=== PATIENT | male | born 1945 | race Caucasian/White ===

== ENCOUNTER 2018-12-24 07:25 | Day surgery (SDC) | payer OTHER, MEDICARE ==
[2018-12-21 12:46] VITALS: BMI 32.5
[2018-12-24] MEDS ORDERED: LIDOCAINE HCL/PF 2% SDV 5ML VIAL ONE (08:14)
[2018-12-24] MEDS ORDERED: PROPOFOL 20 ML ONE ×4 (08:14)
[2018-12-24 09:13] VITALS: PULSE 58; TEMP 97.9
[2018-12-24 09:37] VITALS: BP 127/60
--- NOTE | 2018-12-25 16:39 | PATH ---
Surgical Pathology Report Patient Name: KERRI PAYNE [facility]. Rec. #: [id number] /Age/Gender: 1945 (Age: 73) / M Account: [id number] Location: [facility] Taken: 12/24/2018 Received: 12/24/2018 Reported: 12/25/2018 Physicians: Chacho Serna M.D. Specimen(s) Received A: BX POLYP DISTAL TRANSVERSE COLON B: HOT SNARE POLYPECTOMY PROXIMAL RIGHT COLON Clinical History History of polyps Postoperative diagnosis: Colon polyps, diverticulosis Final Diagnosis A. DISTAL TRANSVERSE COLON, POLYP, BIOPSY: HYPERPLASTIC POLYP. B. PROXIMAL RIGHT COLON, POLYP, POLYPECTOMY: TUBULAR ADENOMA. Electronically Signed Chela Chaudhari M.D. Gross Description A. Received in formalin, labeled "biopsy polyp distal transverse colon" are 2 canseco, irregular portions of soft tissue averaging 0.2 cm. in greatest dimension. The specimens are submitted in toto in one cassette. B. Received in formalin, labeled "polypectomy proximal right colon" is a canseco, polypoid portion of soft tissue measuring 0.6 cm. in greatest dimension. The specimen is submitted in toto in one cassette. 12/24/2018 saudi12/24/2018
== END 2018-12-24 10:03 | disposition home or self-care (01) ==
LOC: FASU-ENDO 07:25
PROVIDERS: ATTEND Internal Medicine Gastroenterology
PROC: 0DBL8ZX Excision of Transverse Colon, Via Natural or Artificial Opening Endoscopic, Diagnostic (ICD-10-PCS; 2018-12-24)
PROC: 0DBK8ZX Excision of Ascending Colon, Via Natural or Artificial Opening Endoscopic, Diagnostic (ICD-10-PCS; principal; 2018-12-24 08:38)
DX: Z86.010 Personal history of colon polyps (principal); D12.2 Benign neoplasm of ascending colon; K63.5 Polyp of colon; K57.30 Diverticulosis of large intestine without perforation or abscess without bleeding
CPT/HCPCS: 82962; 88305-TC